=== PATIENT | male | born 1955 | race Caucasian/White ===

== ENCOUNTER 2018-01-15 00:49 | Inpatient (IN) | payer OTHER ==
[~2018-01-15] VITALS: Ht 177.8 cm; Wt 111.6 kg
[2018-01-15] VITALS (47 sets, daily range): BP systolic 81–132; BP diastolic 47–87
--- NOTE | ~2018-01-15 | EKG ---
[address] [employer] [address] ELECTROCARDIOGRAM REPORT Name: NIDIA SCHULZ Room #: 245-P ADM IN M.R.#: [id number] Admission: 01/15/18 Attend Phys: Amelia Arthur Discharge: Date of : 51 Report #: [id number] THIS REPORT FOR: //name// [facility] ED Test Date: 2018-01-15 Test Time: 00:56:17 Pat Name: NIDIA SCHULZ Department: Room: 245 Gender: M Marketing Developer: ROS : 1955 Requested By: Lashonda Moser Order Number: [id number] MD: German Allen Measurements Intervals [place] Rate: 77 P: 77 MA: 177 QRS: 4 QRSD: 89 T: 45 QT: 392 QTc: 444 Interpretive Statements Sinus arrhythmia Multiple ventricular premature complexes Poor R wave progression Minimal ST depression No previous ECG available for comparison Electronically Signed On 01-15-2018 8:54:33 CDT by German Allen [email or web address] <ELECTRONICALLY SIGNED> By: German Allen MD, FACC 01/15/18 0854 0056 0056 German Allen MD, FACC /EPI
--- NOTE | ~2018-01-15 | HC ---
[facility] [address] [place] [address] CONSULTATION Name: NIDIA SCHULZ Room #: 245-[facility] [place] M.R.#: [id number] Admission: 01/15/18 Attend Phys: Amelia Arthur Discharge: Date of : 51 Report #: [id number] THIS REPORT FOR: //name// CC: FAM unknown Amelia Arthur DATE OF SERVICE: 01/15/2018 REASON FOR CONSULTATION: Sepsis in the setting of sacral osteomyelitis, status post myocutaneous flap. HISTORY OF PRESENT ILLNESS: The patient was at [facility] undergoing his IV antibiotic therapy and wound care. He has underlying paraplegia from a C4-C5 injury. He was 5 weeks post-debridement and myocutaneous flap coverage. He has remained on meropenem for anticipated 6-week course of therapy. He had a left upper extremity PICC, which is functioning well. He had remained in a Clinitron bed. Yesterday had decreased mental status and hypoxia. He was transferred for such. He was placed on a nonrebreather mask. After giving Narcan, he woke up. He has had minimal sputum production. Denies any chest pain. No shortness of breath currently. He was on BiPAP, now on nasal cannula oxygen. He has had no hemoptysis. Minimal sputum production or cough. He remains on meropenem. REVIEW OF SYSTEMS: GENERAL AND CONSTITUTIONAL: As noted above. NEUROLOGIC: C3-C4 paraplegic. This was unchanged. PSYCHIATRIC: Negative. CARDIOPULMONARY: As above with no tachycardia or hypotension. GASTROINTESTINAL: Negative with no diarrhea. GENITOURINARY: Has an indwelling Henry catheter. MUSCULOSKELETAL: As above. SKIN: Negative. LYMPHATIC: Negative. HEMATOLOGIC: Negative. ALLERGIES: BETADINE, VANCOMYCIN. MEDICATIONS: As noted on his MAR including meropenem. PAST MEDICAL HISTORY: Coronary artery disease, diabetes, osteomyelitis as noted with debridement and myocutaneous flap. FAMILY HISTORY: Negative. SOCIAL HISTORY: Nonsmoker, no significant alcohol intake. [facility] [address] [place] [address] CONSULTATION Name: NIDIA SCHULZ Room #: [address] [place] [address] IN M.R.#: [id number] Admission: 01/15/18 Attend Phys: Amelia Arthur Discharge: Date of : 51 Report #: [id number] PHYSICAL EXAMINATION: VITAL SIGNS: Afebrile and hemodynamically stable. Alert and cooperative. Mental status was normal. EYES: Nonicteric. MOUTH: No mucositis or ulceration. NECK: Supple, no thyromegaly or JVD. LUNGS: Few crackles in the bases bilaterally. HEART: Regular, without murmur, gallop or rub. ABDOMEN: Soft and nontender. GENITOURINARY: Indwelling Henry catheter. Unremarkable with no lesions or masses to his genitalia. Sacral flap was intact. [place] drain still in place with small volume serosanguineous output. EXTREMITIES: Left heel ulcer, clean base. No surrounding erythema or purulent drainage. Paraplegic. NEUROLOGIC: Cranial nerves intact. Mood normal. LABORATORY STUDIES: Hemoglobin 12, WBC 9.7, platelet count 181,000. Creatinine 0.7. BNP 4177. Troponin 0.7. CT scan of the chest and abdomen showed basilar atelectasis, interstitial changes, right kidney cyst. ABGs on 40% BiPAP, pO2 is 92, pCO2 76, pH 7.29, lactate 1.9. IMPRESSION: A 62-year-old paraplegic with osteomyelitis of his sacrum, status post surgical debridement and myocutaneous flap 5 weeks postoperative, now with respiratory failure and encephalopathy. I suspect most likely related to narcotic side effect. I have not seen the blood glucose readings from the transferring facility, although blood glucose here has been above 150. He has some basilar atelectasis, doubt aspiration pneumonia at this point. RECOMMENDATION: We will continue current IV antibiotic therapy for his sacral osteomyelitis. We will obtain microbiology reports from [facility]. Continue current treatment program. Have Wound Care assist. Continue with offloading his sacrum. Should be back in a Clinitron bed if possible. <ELECTRONICALLY SIGNED> By: Brandin Whipple MD 01/16/18 1502 0908 1524 Brandin Whipple MD /nt
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
[2018-01-15 01:01] LABS: BE(vivo) 3.9 mmol/L (-2 to +3); HCO3 35.3 mmol/L (22.0-26.0); PO2 100.2 mmHg (80.0-100.0); sO2 95.5 % (92.0-98.0)
[2018-01-15 01:02] LABS: PCO2 96.6 mmHg (35.0-45.0); pH 7.181 (7.360-7.450)
[2018-01-15 01:11] LABS: ABSOLUTE NEUTROPHILS 7.2 thou/uL (1.4-8.2); BASOPHILS 0.3 % (0.0-2.0); EOSINOPHILS 1.7 % (0.0-3.0); HEMATOCRIT 37.7 % (42.0-52.0); HEMOGLOBIN 12.1 gm/dL (14.0-18.0); LYMPHOCYTES 17.9 % (24.0-44.0); MCV 78.2 fL (80.0-100.0); MONOCYTES 6.5 % (1.0-8.0); PLATELET COUNT 181 thou/uL (150-400); POLYS 73.6 % (36.0-66.0); RBC 4.81 mil/uL (4.50-6.00); RDW 18.7 % (10.5-14.5); WBC 9.7 thou/uL (4.0-11.0)
[2018-01-15 01:18] LABS: CALCIUM 9.5 mg/dL (8.5-10.1); CREATININE 0.7 mg/dL (0.7-1.3); POTASSIUM 4.9 mmol/L (3.5-5.1)
[2018-01-15 01:27] LABS: TROPONIN-I 0.08 ng/mL (<0.06)
[2018-01-15 02:24] LABS: BE(vivo) 6.9 mmol/L (-2 to +3); HCO3 36.1 mmol/L (22.0-26.0); PCO2 76.8 mmHg (35.0-45.0); sO2 95.8 % (92.0-98.0)
[2018-01-16] VITALS (12 sets, daily range): BP systolic 106–121; BP diastolic 50–62
[2018-01-16 05:05] LABS: HEMATOCRIT 31.1 % (42.0-52.0); HEMOGLOBIN 10.1 gm/dL (14.0-18.0); MCH 25.4 pg (26.0-34.0); MCHC 32.3 g/dL (28.0-37.0); MCV 78.6 fL (80.0-100.0); RBC 3.96 mil/uL (4.50-6.00); RDW 18.5 % (10.5-14.5)
[2018-01-16 05:15] LABS: CALCIUM 8.9 mg/dL (8.5-10.1); CREATININE 0.6 mg/dL (0.7-1.3); POTASSIUM 4.6 mmol/L (3.5-5.1)
[2018-01-16] MEDS ORDERED: NOVOLOG100 UNIT/1 SUBQ (08:39)
[2018-01-16] MEDS ORDERED: MEROPENEM-500 MG/50 IVPB (08:39)
[2018-01-16] MEDS ORDERED: PEPCID20 MG PO (08:39)
[2018-01-16] MEDS ORDERED: LANTUS100 UNIT/M SUBQ (08:41)
[2018-01-16] MEDS ORDERED: TRAMADOL 50 MG50 MG PO (08:43)
== END 2018-01-16 15:00 | DRG 189 ==
LOC: ER 00:49 → ICU 03:06 → EROBS 03:06 → ICU 04:58
PROVIDERS: Emergency Medicine; Internal Medicine Pulmonary Disease; Nurse Practitioner Family
PROC: 5A09357 Assistance with Respiratory Ventilation, Less than 24 Consecutive Hours, Continuous Positive Airway Pressure (ICD-10-PCS; principal; 2018-01-15)
PROC: 5A09357 Assistance with Respiratory Ventilation, Less than 24 Consecutive Hours, Continuous Positive Airway Pressure (ICD-10-PCS; 2018-01-16)
DX: J96.21 Acute and chronic respiratory failure with hypoxia (principal); G82.50 Quadriplegia, unspecified; G92 Toxic encephalopathy; G82.20 Paraplegia, unspecified; J98.11 Atelectasis; I25.10 Atherosclerotic heart disease of native coronary artery without angina pectoris; J96.22 Acute and chronic respiratory failure with hypercapnia; E11.9 Type 2 diabetes mellitus without complications; J84.10 Pulmonary fibrosis, unspecified; I11.0 Hypertensive heart disease with heart failure; I50.9 Heart failure, unspecified; N40.0 Benign prostatic hyperplasia without lower urinary tract symptoms; T40.605A Adverse effect of unspecified narcotics, initial encounter; Y92.89 Other specified places as the place of occurrence of the external cause; Z87.828 Personal history of other (healed) physical injury and trauma; Z88.1 Allergy status to other antibiotic agents; Z88.8 Allergy status to other drugs, medicaments and biological substances; Z91.041 Radiographic dye allergy status; Z91.048 Other nonmedicinal substance allergy status; Z28.21 Immunization not carried out because of patient refusal
CPT/HCPCS: 10078